=== PATIENT | female | born 1970 | race Caucasian/White ===

== ENCOUNTER → 2017-09-23 13:48 | Outpatient (CLI) | payer BC, SELFPAY | PROVIDERS: Family Provider Family Medicine; PCP Family Medicine; Visit Provider Obstetrics & Gynecology | DX: Z87.898 Personal history of other specified conditions (principal) | CPT/HCPCS: 76642; 77062; 77066; G0279 ==

== ENCOUNTER → 2017-09-26 15:40 | Outpatient (CLI) | payer BC, SELFPAY ==
--- NOTE | 2017-09-26 | LYMN_PTH ---
PATIENT: GARCIA JOLLEY LOC: [facility] U#:[id number] AGE/SX: 54/F ROOM: RE09/26/[address]: Dr. Andres Perla III, MD : 1970 BED: DIS: SPEC #: [id number] RECD: 09/26/17 08:07 STATUS: MICK REQ #: [id number] LONNIE: 09/26/17 00:[address]: Benton Perla DEPT: SURGICAL PATHOLOGY RECD BY: Anshu Perez ENTERED: 09/29/17 08:26 SP TYPE: LYMPH NODE OTHR DR: Dr. Thad Whalen MD Tissues: Axillary lymph node, NOS Procedures: Surgery Specimen Level IV Comments: @ Originally on account #[id number] Req #[id number] HEADER OPERATION: Right breast lymph node biopsy PRE-OP DIAGNOSIS: Lymph node right breast TISSUE SUBMITTED: Right breast lymph node ISCHEMIC TIME: >1 minute FIXATION TIME: 8.5 hours MICROSCOPIC DIAGNOSIS Right breast lymph node, core biopsy: Lymph node tissue, polytypic in nature, favor benign with reactive changes. Negative for metastatic carcinoma.. GUMARO:matt 09/30/17 COMMENT Immunohistochemistry ([id number]) supports the above diagnosis. MICROSCOPIC DESCRIPTION Slides are reviewed. GROSS DESCRIPTION Received in fixative is one container labeled with the patient's name and designated right breast biopsy. The specimen consists of multiple elongated fragments of blanco-yellow fibroadipose tissue that in aggregate measure 1 x 0.2 x 0.1 cm. The entire specimen is submitted in one cassette. / GUMARO:matt 09/29/17 TC:5 CPT: 64849
--- NOTE | 2017-09-26 | IMM_PTH ---
PATIENT: GARCIA JOLLEY LOC: [facility] U#:[id number] AGE/SX: 54/F ROOM: RE09/26/[address]: Dr. Andres Perla III, MD : 1970 BED: DIS: SPEC #: [id number] RECD: 09/30/17 13:05 STATUS: MICK RELalo #: [id number] LONNIE: 09/26/17 00:[address]: Benton Perla DEPT: IMMUNOHISTOCHEMISTRY RECD BY: Claudia Lui ENTERED: 09/30/17 13:07 SP TYPE: IMMUNO OTHR DR: MD Dr. Thad Navarrete III, MD Tissues: Axillary lymph node, NOS Procedures: BCL-2 (add) CD20 (add) CD45 (add) CD5 (add) CD79A (add) CK8 (add) Pankeratin (add) CD3 (initial) PHYSICIAN & INSTITUTION [place] [id number] SPECIMEN INFORMATION: Tissue Source: Right breast lymph node Clinical Info: Right breast lymph node Specimen Number: [id number] CPT code: 91680, 14864 x7 METHODOLOGY: Deparaffinized sections of prefer/formalin-fixed tissue or PAP/DQ stained slides are incubated with monoclonal/polyclonal antibodies/oligonucleotide probes. Localization is made via biotin free immunoperoxidase method. Appropriate controls are performed and reacted as expected. Results on target cell population are indicated in the following table: RESULTS: ANTIBODY / CLONE RESULT CD3 (PS1) positive CD5 (SP10) positive CD20 (L26) positive CD79a (11E3) positive CD45 (RP2/18) positive CK8 ([id number]) negative AE1-3 (AE1/AE3/PCK26) negative BCL-2 (bcl-2/100/D5) negative in germinal center These tests were developed and their performance characteristics determined by [facility]. They may not have been cleared or approved by the U.S. Food and Drug Administration. The FDA has determined that such clearance or approval is not necessary. INTERPRETATION: Right breast lymph node, biopsy: Lymph node tissue, polytypic in nature, favor benign, with reactive changes. Negative for metastatic carcinoma. SJ:matt 10/01/17
== END ==
PROVIDERS: Family Provider Family Medicine; PCP Family Medicine; Visit Provider Family Medicine
DX: N64.59 Other signs and symptoms in breast (principal)
CPT/HCPCS: 88305; 88341; 88342

== ENCOUNTER → 2017-12-29 09:38 | Outpatient (CLI) | payer BC, SELFPAY ==
[2017-12-29 12:44] LABS: Absolute Lymphocyte Count 2.31 X10^3/ul (0.83-4.51); Absolute Neutrophil Count 5.9 X10^3/uL (2.0-7.7); Basophil# 0.03 X10^3/uL; Basophil% 0.3 % (0-1); Eosinophil# 0.17 X10^3/uL; Eosinophils% 1.9 % (0-5); Hematocrit 41.5 % (37-47); Hemoglobin 13.4 g/dl (12.0-15.0); Lymphocyte # 2.31 X10^3/ul (4.0); Lymphocyte % 25.7 % (19-41); Mean Corp Hgb Conc 32.3 g/gl (32-36); Mean Corpuscular Hgb 27.6 pg (27.0-32.0); Mean Corpuscular Volume 85.4 fL (81-99); Monocyte# 0.51 X10^3/uL; Monocyte% 5.7 % (0-10); Neutrophil # 5.93 X10^3/uL (2.7-7.7); Neutrophil % 65.8 % (47-70); Platelet Count 230 K/mm3 (150-450); RBC Distribution Width CV 14.9 % (11.6-14.6); RBC Distribution Width SD 46.2 fl (35.1-43.9); Red Blood Count 4.86 M/mm3 (4.2-5.4)
[2017-12-29 12:56] LABS: POSITIVE COUNT NO; POSITIVE DIFFERENTIAL NO; POSITIVE MORPHOLOGY NO
[2017-12-29 13:07] LABS: ALB/GLOB Ratio 0.9 RATIO (0.9-2.4); AST(SGOT) 10 U/L (15-37); Alanine Aminotransfer ALT/SGPT 20 U/L (13-56); Albumin, Serum 3.3 g/dL (3.2-5.0); Alkaline Phosphatase 82 U/L (45-117); Anion Gap 9 (5-15); BUN 13 mg/dL (7-18); BUN/Creat Ratio 27.1 RATIO (10-20); Calcium,Total 8.6 mg/dL (8.5-10.1); Chloride 106 mmol/L (98-107); Creatinine, Serum 0.48 mg/dL (0.55-1.02); EST Glomerular Filtration Rate 148 mL/min (>60); Est Glom Filt Rate - Afr Amer 179 mL/min (>60); Globulin 3.5 g/dL (2.2-4.2); Glucose 113 mg/dL (74-106); Magnesium 1.9 mg/dL (1.6-2.6); Potassium 4.1 mmol/L (3.5-5.1); Protein, Total 6.8 g/dL (6.4-8.2); Sodium Level 139 mmol/L (136-145)
== END ==
PROVIDERS: Family Provider Family Medicine; PCP Family Medicine; Visit Provider Family Medicine
DX: R06.09 Other forms of dyspnea (principal)
CPT/HCPCS: 36415; 80053; 83735; 85025

== ENCOUNTER → 2018-01-13 06:54 | Outpatient (CLI) | payer BC, SELFPAY ==
[2018-01-08 11:31] VITALS: BMI 62.9
--- NOTE | 2018-01-13 07:01 | ECHOCS_ITS ---
Reason For Study: PEÑA Procedure This was a 2D Doppler, Color Flow transthoracic echocardiogram. The study was technically difficult. Contrast injection was performed. Exam performed in department. Left Ventricle Normal LV size. Left ventricular systolic function is normal. The estimated ejection fraction is 65 %. No evidence for diastolic dysfunction. No regional wall motion abnormalities noted. Right Ventricle Normal RV size. Normal systolic function. Atria The left atrium is mildly enlarged. Normal right atrium. No doppler evidence for ASD. Mitral Valve There is mild mitral annular calcification. Normal mitral valve. Mild (1+) mitral valve insufficiency. Tricuspid Valve Normal tricuspid valve. Mild tricuspid valve insufficiency. Right ventricular systolic pressure estimated to be 26 mmHg. Aortic Valve The aortic valve is not well visualized. Pulmonic Valve The pulmonic valve is not well visualized. Great Vessels The aortic root is not well visualized. Pericardium/Pleural No pericardial effusion. Medication Diluted definity 4ml given slow IV push to enhance endocardial definition. MMode/2D Measurements & Calculations LVIDd: 4.8 cm IVSd: 1.0 cm LAV(MOD-bp): 73.5 ml LVIDs: 3.1 cm LVPWd: 0.97 cm RVDd: 3.8 cm FS: 35.1 % LAV(MOD-bp) Indexed: 29.1 ml/m2 LAV(MOD-sp2): 71.5 ml LAV(MOD-sp4): 70.5 ml EDV(MOD-sp4): 136.7 ml EDV(MOD-sp2): 154.6 ml SV(MOD-sp4): 83.6 ml ESV(MOD-sp4): 53.0 ml EF(MOD-sp2): 68.8 % EF(MOD-sp4): 61.2 % SV(MOD-sp2): 106.3 ml LA dimension(2D): 3.9 cm LA A4 area: 23.9 cm2 RA A4 area: 17.5 cm2 Time Measurements MV dec time: 0.20 sec Doppler Measurements & Calculations MV E max michael: 104.5 cm/sec Lat Peak E' Michael: 10.5 cm/sec Med Peak E' Michael: 7.9 cm/sec MV A max michael: 85.9 cm/sec E/E' lat: 10.0 E/E' med: 13.3 MV E/A: 1.2 Ao V2 max: 170.9 cm/sec LV V1 max: 154.7 cm/sec TR max michael: 239.9 cm/sec Ao max P.7 mmHg LV V1 max P.6 mmHg TR max P.3 mmHg Interpretation Summary The study was technically difficult. Contrast injection was performed. Left ventricular systolic function is normal. The estimated ejection fraction is 65 %. The left atrium is mildly enlarged. There is mild mitral annular calcification. Mild (1+) mitral valve insufficiency. Mild tricuspid valve insufficiency. Right ventricular systolic pressure estimated to be 26 mmHg. No evidence for diastolic dysfunction. Ordering Physician: Thad Whalen Referring Physician: Thad Whalen Performed By: Lou Gtz, RDANDERSON, RVT
== END ==
PROVIDERS: Family Provider Family Medicine; PCP Family Medicine; Referring Provider Family Medicine; Visit Provider Family Medicine
DX: R06.09 Other forms of dyspnea (principal)
CPT/HCPCS: 78452; 93017; 93306; A9500; Q9957; A4216; C8929

== ENCOUNTER → 2018-01-13 06:57 | Outpatient (REF) | payer BC, SELFPAY ==
[2018-01-08 11:31] VITALS: BMI 62.9
--- NOTE | 2018-01-13 14:38 | STRESSREP ---
Stress Test Report Date: 01/13/2018 Procedure: Exercise tolerance test/imaging study Indications: Shortness of breath/dyspnea on exertion Consent: Per the patient Procedure: The patient exercised on a Robin protocol for 5 minutes and 45 seconds completing Stage I and 2 minutes and 45 seconds of Stage II achieving a peak heart rate of 160 bpm (91 % predicted maximal heart rate) with a peak blood pressure 150/80 mmHg and a peak MET capacity of 7 METs. The baseline ECG demonstrated normal sinus rhythm. The peak exercise ECG demonstrated no obvious ECG changes. There was a rare PVC during exercise. The functional capacity was considered average. There was no complaint of chest discomfort during exercise or recovery. The examination was discontinued secondary to dyspnea. Impression: 1. Technically adequate (percent predicted maximal heart rate greater than 85%) exercise tolerance test 2. Peak exercise ECG no obvious ECG changes 3. Was a rare PVC during exercise 4. Nuclear images pending Myocardial perfusion imaging study: Technique: The patient was injected with 14.9 mCi of technetium 99m Cardiolite and subsequently rest SPECT Cardiolite nuclear imaging was obtained in the horizontal long, vertical long, and short axis views. The patient exercised on a Robin protocol for 5 minutes and 45 seconds completing Stage I and 2 minutes and 45 seconds of Stage II achieving a peak heart rate of 160 bpm (91 % predicted maximal heart rate) with a peak blood pressure 150/80 mmHg and a peak MET capacity of 7 METs. The patient was injected with 44.8 mCi of technetium 99m Cardiolite and subsequently stress SPECT Cardiolite nuclear imaging was obtained in the horizontal long, vertical long, and short axis views. A gated Cardiolite study at peak stress was obtained. Interpretation: Rest and stress SPECT Cardiolite nuclear imaging status post realignment, normalization, and attenuation correction, demonstrates extracardiac/gastrointestinal tracer uptake at rest which appears less prominent following stress. At rest there is notation of relative uniform tracer uptake. Status post stress there is notation of diminished tracer uptake in portions of the mid to distal anterior/anterolateral segments. There is diminished end-systolic thickening and brightening in the aforementioned areas. The gated Cardiolite study demonstrates myocardial thickening and inward wall motion. The reported LVEF is 69 %. Impression: 1. Rest and stress SPECT Cardiolite nuclear imaging demonstrate cardio perfusion changes appearing compatible with an area of stress-induced myocardial ischemia in portions of the mid to distal anterior lateral segments. 2. The gated Cardiolite study reports an LVEF of 69 %. This note was generated with [employer] software. It may contain incorrect words, spelling, and punctuation that were not noted in checking the note before signing.
--- NOTE | 2018-01-13 14:44 | STRESSREP_ITS ---
Stress Test Report Date: 01/13/2018 Procedure: Exercise tolerance test/imaging study Indications: Shortness of breath/dyspnea on exertion Consent: Per the patient Procedure: The patient exercised on a Robin protocol for 5 minutes and 45 seconds completing Stage I and 2 minutes and 45 seconds of Stage II achieving a peak heart rate of 160 bpm (91 % predicted maximal heart rate) with a peak blood pressure 150/80 mmHg and a peak MET capacity of 7 METs. The baseline ECG demonstrated normal sinus rhythm. The peak exercise ECG demonstrated no obvious ECG changes. There was a rare PVC during exercise. The functional capacity was considered average. There was no complaint of chest discomfort during exercise or recovery. The examination was discontinued secondary to dyspnea. Impression: 1. Technically adequate (percent predicted maximal heart rate greater than 85%) exercise tolerance test 2. Peak exercise ECG no obvious ECG changes 3. Was a rare PVC during exercise 4. Nuclear images pending Myocardial perfusion imaging study: Technique: The patient was injected with 14.9 mCi of technetium 99m Cardiolite and subsequently rest SPECT Cardiolite nuclear imaging was obtained in the horizontal long, vertical long, and short axis views. The patient exercised on a Robin protocol for 5 minutes and 45 seconds completing Stage I and 2 minutes and 45 seconds of Stage II achieving a peak heart rate of 160 bpm (91 % predicted maximal heart rate) with a peak blood pressure 150/80 mmHg and a peak MET capacity of 7 METs. The patient was injected with 44.8 mCi of technetium 99m Cardiolite and subsequently stress SPECT Cardiolite nuclear imaging was obtained in the horizontal long, vertical long, and short axis views. A gated Cardiolite study at peak stress was obtained. Interpretation: Rest and stress SPECT Cardiolite nuclear imaging status post realignment, normalization, and attenuation correction, demonstrates extracardiac/gas trointestinal tracer uptake at rest which appears less prominent following stress. At rest there is notation of relative uniform tracer uptake. Status post stress there is notation of diminished tracer uptake in portions of the mid to distal anterior/anterolateral segments. There is diminished end-systolic thickening and brightening in the aforementioned areas. The gated Cardiolite study demonstrates myocardial thickening and inward wall motion. The reported LVEF is 69 %. Impression: 1. Rest and stress SPECT Cardiolite nuclear imaging demonstrate cardio perfusion changes appearing compatible with an area of stress-induced myocardial ischemia in portions of the mid to distal anterior lateral segments. 2. The gated Cardiolite study reports an LVEF of 69 %. This note was generated with [employer] software. It may contain incorrect words, spelling, and punctuation that were not noted in checking the note before signing.
== END ==
LOC: CVS 06:57
PROVIDERS: Family Provider Family Medicine; PCP Family Medicine; Referring Provider Internal Medicine Cardiovascular Disease; Visit Provider Internal Medicine Cardiovascular Disease
DX: R00.2 Palpitations (principal)
CPT/HCPCS: 93270

== ENCOUNTER 2019-01-02 10:00 | Emergency (ER) | payer BC, SELFPAY ==
[2018-03-20 10:13] VITALS: BMI 63.8
[2019-01-02 10:01] VITALS: BP 154/65; PULSE 77; RESP 16; TEMP 36.4; O2SAT 98; BMI 61.7
[2019-01-02] MEDS: Ondansetron 4 MG/2 ML Vial IV (10:52)
[2019-01-02] MEDS: LORazepam 2 MG/ML Syringe 1 MG IV (10:52)
[2019-01-02 11:27] LABS: Carboxyhemoglobin Frac (CO) 2.1 % (0.0-1.5)
[2019-01-02 11:53] VITALS: PULSE 83; RESP 14; O2SAT 95
--- NOTE | 2019-01-02 11:54 | ED.RN ---
ATTEMPTED TO AMBULATE PT TO EVALUATE VERTIGO SYMPTOMS. PT INITIALLY REFUSED, STATING I JUST WANT TO SLEEP'. AFTER ENCOURAGEMENT, PT GOT OUT OF BED, STATED EVERYTHING WAS STILL SPINNING. AWARE.
--- NOTE | 2019-01-02 12:02 | CT_ITS ---
STUDY: CT BRAIN WITHOUT CONTRAST REASON FOR EXAM: Female, 48 years old. Dizziness RADIATION DOSAGE (If Supplied By Facility): CTDIvol = ( 44.99 ) mGy, DLP = ( 829.85 ) mGycm TECHNIQUE: Transaxial CT imaging of the brain was performed without administration of intravenous contrast material. Individualized dose optimization techniques were used for this CT. COMPARISON: No relevant priors. FINDINGS: Normal soft tissue structures. Normal calvarium. Normal size ventricles and extra-axial spaces for the patient's age. Normal white matter tracts of the cerebral hemispheres. Normal basal ganglia and thalami. Normal brainstem. Normal cerebellum. There is no intracranial hemorrhage. There are no findings of an acute ischemic infarction. Normal visualized paranasal sinuses. CT/Brain/Head without Contrast IMPRESSION: No acute intracranial hemorrhage or mass effect. Electronically Signed: Yoseph Haley MD (Brooks) at 12:29 EST , Service support ,
[2019-01-02] MEDS: Meclizine HCl 25 MG Tablet PO (12:27)
[2019-01-02 12:29] LABS: Absolute Lymphocyte Count 3.55 X10^3/uL (0.83-4.51); Absolute Neutrophil Count 10.7 X10^3/uL (2.0-7.7); Basophil% 0.6 % (0-1); Eosinophil# 0.34 X10^3/uL; Eosinophils% 2.2 % (0-5); Hematocrit 43.2 % (37-47); Hemoglobin 13.8 g/dL (12.0-15.0); Lymphocyte # 3.55 X10^3/ul (4.0); Lymphocyte % 22.8 % (19-41); Mean Corp Hgb Conc 31.9 g/dL (32-36); Mean Corpuscular Hgb 27.5 pg (27.0-32.0); Mean Corpuscular Volume 86.1 fL (81-99); Mean Platelet Vol. 11.9 fl (6.2-12.0); Monocyte# 0.76 X10^3/uL; Monocyte% 4.9 % (0-10); NRBC Flagged by Analyzer 0 % (0-5); Neutrophil # 10.68 X10^3/uL (2.7-7.7); Neutrophil % 68.4 % (47-70); Platelet Count 273 K/mm3 (150-450); RBC Distribution Width CV 13.7 % (11.6-14.6); RBC Distribution Width SD 43.3 fl (35.1-43.9); Red Blood Count 5.02 M/mm3 (4.2-5.4); White Blood Count 15.6 K/mm3 (4.4-11.0)
[2019-01-02 12:59] LABS: Internal QC Validated? YES +Cl - CLEAR BKGD; Pregnancy, Serum, hCG Quali. NEGATIVE Negative
[2019-01-02 13:05] LABS: Anion Gap 10 (5-15); BUN 14 mg/dL (7-18); BUN/Creat Ratio 21.2 RATIO (10-20); Calcium,Total 8.7 mg/dL (8.5-10.1); Chloride 106 mmol/L (98-107); Creatinine, Serum 0.66 mg/dL (0.55-1.02); EST Glomerular Filtration Rate 102 mL/min (>60); Est Glom Filt Rate - Afr Amer 123 mL/min (>60); Estimated Creatinine Clearance 90.99 ml/min; Glucose 179 mg/dL (74-106); Potassium 3.6 mmol/L (3.5-5.1); Sodium Level 140 mmol/L (136-145)
--- NOTE | 2019-01-02 13:40 | ED.VISSUMM ---
- ER Visit Summary Date of Service: 01/02/19 Chief Complaint: Dizziness History of Present Illness: The patient is a 48 F dizziness that started suddenly at wake up this morning. She feels like the room is spinning. Associated with nausea and she is unsteady when she tries to walk. No other neurologic symptoms. No head ache. No recent infection or illness or fever. No trauma. No history of blood thinner use. Denies any new hearing changes. Physical Examination: Afebrile and vital signs are unremarkable. Patient appears uncomfortable. She has horizontal nystagmus with fast saccades to the left. Otherwise HEENT exam is unremarkable. Neurologic exam is otherwise unremarkable. Skin appears normal. Bilateral TMs show some scarring but otherwise are unremarkable. Test Results: See below Emergency Department Course and Treatment: Patient initially presents with what seems like peripheral vertigo. She was treated with Ativan and Zofran. Her nausea improved, but she had continued dizziness and was unable to ambulate. I thought she may need inpatient care. Her vertigo was still fairly severe. I added on testing. Her white count was 15.6. She said this was elevated in the past. It was 13.7. I do not believe she has an infectious process based on her history or exam. I have no other explanation for this. Otherwise her labs were all fairly unremarkable. She said that she was concerned she may have been exposed to carbon monoxide, and this was 2.1, which is normal. CT of her brain was unremarkable. Patient was treated with meclizine as well while awaiting results. On further reevaluation, we reviewed her labs including the leukocytosis. No further testing is indicated. The patient seems to be much improved. He would like to try outpatient therapy. Will prescribe meclizine. She was advised to follow-up with ENT. If she has new or worsening issues, she should return right away. Treatment Plan: As above Disposition: Discharge Impression: 1. Vertigo This note was generated with [employer] dictation software. It may contain incorrect words, spelling, and punctuation that were not noted in review of the chart prior to signing ED Disposition - Plan for ED Patient: Referrals: Thad Whalen MD [Primary Care Provider] -
--- NOTE | 2019-01-02 13:43 | ED.DEP ---
ED Disposition - Plan for ED Patient: Instructions: VERTIGO, Unspecified Prescriptions: Meclizine HCl [Antivert] 25 mg PO TID PRN PRN #30 tab PRN Reason: Vertigo Prescription Printed Referrals: Jamar Dumont MD [STAFF PHYSICIAN] -
[2019-01-02 14:05] VITALS: PULSE 79; RESP 16; O2SAT 98
--- NOTE | 2019-01-02 14:09 | ED.RN ---
ABLE TO REACH [employer]GAL [employer] AFTER SEVERAL ATTEMPTS. PERMISSION GIVEN TO TREAT, UPDATED ON PT'S HEALTH HISTORY.
== END 2019-01-02 14:09 | disposition home or self-care (01) ==
LOC: ED 10:35
PROVIDERS: Emergency Provider Emergency Medicine; Family Provider Family Medicine; PCP Family Medicine
DX: R42 Dizziness and giddiness (principal); I10 Essential (primary) hypertension
CPT/HCPCS: 70450; 80048; 82375; 84703; 85025; 96374; 96375; 99283; A4216; J2405

== ENCOUNTER → 2019-10-27 15:49 | Outpatient (CLI) | payer BC, SELFPAY ==
[2019-10-27 09:02] VITALS: BMI 66.3
[2019-11-02 10:28] LABS: HPV APTIMA, High Risk Negative (Negative)
== END ==
PROVIDERS: PCP Family Medicine; Visit Provider Obstetrics & Gynecology
DX: Z12.4 Encounter for screening for malignant neoplasm of cervix (principal)
CPT/HCPCS: 87624; 88175; G0145

== ENCOUNTER → 2019-12-01 09:19 | Outpatient (CLI) | payer BC, SELFPAY ==
[2019-10-27 09:02] VITALS: BMI 66.3
[2019-12-01 10:34] LABS: Vitamin D,25 Hydroxy 14.1 ng/mL
[2019-12-01 10:39] LABS: Anion Gap 6 (5-15); BUN 10 mg/dL (7-18); BUN/Creat Ratio 16.3 RATIO (10-20); Calcium,Total 8.9 mg/dL (8.5-10.1); Chloride 103 mmol/L (98-107); Cholesterol 197 mg/dL (200); Creatinine, Serum 0.61 mg/dL (0.55-1.02); EST Glomerular Filtration Rate 110 mL/min (>60); Est Glom Filt Rate - Afr Amer 134 mL/min (>60); Glucose 160 mg/dL (74-106); High Density Lipoprotein 49 mg/dL; Potassium 3.9 mmol/L (3.5-5.1); Sodium Level 135 mmol/L (136-145); Thyroid Stim Hormone (TSH) 2.25 uIU/mL (0.358-3.74); Triglycerides 225 mg/dL; Very Low Density Lipoprotein 45 mg/dL (5-40)
== END ==
PROVIDERS: PCP Family Medicine; Referring Provider Family Medicine; Visit Provider Family Medicine
DX: Z00.00 Encounter for general adult medical examination without abnormal findings (principal)
CPT/HCPCS: 36415; 80048; 80061; 82306; 84443

== ENCOUNTER → 2020-03-08 08:46 | Outpatient (CLI) | payer BC, SELFPAY ==
[2019-10-27 09:02] VITALS: BMI 66.3
[2020-03-08 10:28] LABS: Anion Gap 8 (5-15); BUN 13 mg/dL (7-18); BUN/Creat Ratio 20.7 RATIO (10-20); Chloride 105 mmol/L (98-107); Cholesterol 196 mg/dL (200); Creatinine, Serum 0.63 mg/dL (0.55-1.02); EST Glomerular Filtration Rate 107 mL/min (>60); Est Glom Filt Rate - Afr Amer 129 mL/min (>60); Glucose 146 mg/dL (74-106); High Density Lipoprotein 45 mg/dL; Potassium 3.8 mmol/L (3.5-5.1); Sodium Level 137 mmol/L (136-145); Triglycerides 188 mg/dL; Very Low Density Lipoprotein 38 mg/dL (5-40)
[2020-03-08 11:01] LABS: Vitamin D,25 Hydroxy 31.1 ng/mL
== END ==
PROVIDERS: PCP Family Medicine; Referring Provider Family Medicine; Visit Provider Family Medicine
DX: E55.9 Vitamin D deficiency, unspecified (principal); E11.9 Type 2 diabetes mellitus without complications
CPT/HCPCS: 36415; 80048; 80061; 82306

== ENCOUNTER 2020-03-10 10:45 | Outpatient (RCR) | payer BC, SELFPAY ==
[2019-10-27 09:02] VITALS: BMI 66.3
== END 2020-03-10 23:59 ==
LOC: IMMUN 10:45
PROVIDERS: PCP Family Medicine; Visit Provider Family Medicine
DX: Z23 Encounter for immunization (principal)
CPT/HCPCS: 0011A; 0012A; 91301

== ENCOUNTER 2021-04-11 09:28 | Outpatient (CLI) | payer BC, SELFPAY ==
[2021-04-11 11:06] LABS: Anion Gap 7 (5-15); BUN 11 mg/dL (7-18); BUN/Creat Ratio 19.9 RATIO (10-20); Calcium,Total 8.7 mg/dL (8.5-10.1); Chloride 104 mmol/L (98-107); Cholesterol 205 mg/dL (200); Creatinine, Serum 0.55 mg/dL (0.55-1.02); EST Glomerular Filtration Rate 124 mL/min (>60); Est Glom Filt Rate - Afr Amer 150 mL/min (>60); Glucose 135 mg/dL (74-106); High Density Lipoprotein 46 mg/dL; Potassium 4.3 mmol/L (3.5-5.1); Sodium Level 137 mmol/L (136-145); Triglycerides 242 mg/dL; Very Low Density Lipoprotein 48 mg/dL (5-40)
== END 2021-04-11 23:59 | disposition home or self-care (01) ==
LOC: MFPLAB 09:29
PROVIDERS: PCP Family Medicine; Referring Provider Family Medicine; Visit Provider Family Medicine
DX: E11.9 Type 2 diabetes mellitus without complications (principal)
CPT/HCPCS: 36415; 80048; 80061

== ENCOUNTER → 2021-11-07 | Outpatient (CLI) | payer BC, SELFPAY ==
[2021-11-07 10:24] LABS: Anion Gap 9 (5-15); BUN 13 mg/dL (7-18); BUN/Creat Ratio 19.2 RATIO (10-20); Chloride 103 mmol/L (98-107); Cholesterol 146 mg/dL (200); Creatinine, Serum 0.68 mg/dL (0.55-1.02); EST Glomerular Filtration Rate 98 mL/min (>60); Est Glom Filt Rate - Afr Amer 118 mL/min (>60); Glucose 149 mg/dL (74-106); High Density Lipoprotein 46 mg/dL; Potassium 4.2 mmol/L (3.5-5.1); Sodium Level 137 mmol/L (136-145); Triglycerides 247 mg/dL; Very Low Density Lipoprotein 49 mg/dL (5-40)
== END | disposition home or self-care (01) ==
LOC: MFPLAB 08:57
PROVIDERS: PCP Family Medicine; Referring Provider Family Medicine; Visit Provider Family Medicine
DX: E11.9 Type 2 diabetes mellitus without complications (principal)
CPT/HCPCS: 36415; 80048; 80061

== ENCOUNTER → 2022-05-20 | Outpatient (CLI) | payer BC, SELFPAY ==
[2022-05-20 10:08] LABS: Anion Gap 3 (5-15); BUN 11 mg/dL (7-18); BUN/Creat Ratio 18.2 RATIO (10-20); Chloride 102 mmol/L (98-107); Cholesterol 138 mg/dL (200); Creatinine, Serum 0.61 mg/dL (0.55-1.02); EST Glomerular Filtration Rate 111 mL/min (>60); Est Glom Filt Rate - Afr Amer 134 mL/min (>60); Glucose 163 mg/dL (74-106); High Density Lipoprotein 47 mg/dL; Sodium Level 133 mmol/L (136-145); Triglycerides 171 mg/dL; Very Low Density Lipoprotein 34 mg/dL (5-40)
== END | disposition home or self-care (01) ==
PROVIDERS: PCP Family Medicine; Visit Provider Family Medicine
DX: E11.9 Type 2 diabetes mellitus without complications (principal)
CPT/HCPCS: 36415; 80048; 80061

== ENCOUNTER 2022-07-24 08:30 | Day surgery (SDC) | payer BC, SELFPAY ==
[2022-07-24] MEDS: Lactated Ringers 1,000 ML 15 ML IV (08:45)
[2022-07-24 09:01] VITALS: BP 140/81; PULSE 89; RESP 20; TEMP 36.7; O2SAT 96; BMI 59.8
--- NOTE | 2022-07-24 09:17 | H&P.OPEN ---
HPI - General General Date of Admission: 07/24/22 HPI Narrative GARCIA JOLLEY, is a 52 F who presents for screening colonoscopy. Patient never had previous colonoscopy. Patient denies any family history of colon cancer. Patient denies any chronic abdominal pain/nausea/vomiting/reflux. Patient's bowel movements daily has occasional blood due to hemorrhoids. Patient states she has had a camera take a look at this area that she knows she has hemorrhoids. [facility] Medical History (Updated 07/22/22 @ 14:01 by Yamel Li) Abnormal stress test Benign essential hypertension BiPAP (biphasic positive airway pressure) dependence Cardiology follow-up encounter Climacteric Dietary restriction Dysmetabolic syndrome X High cholesterol History of echocardiogram History of edema History of stress test Hypertension Leg cramps Non-smoker Palpitations Sleep apnea SOB (shortness of breath) on exertion Type 2 diabetes mellitus without complications Wears glasses Home Medications biotin 10 mg tablet 10 mg PO DAILY 04/05/19 [History Last Taken Unknown] multivitamin 1 tab PO DAILY 04/05/19 [History Last Taken Unknown] naproxen 500 mg tablet 500 mg PO BID PRN pain 10 days #30 tabs 10/27/19 [Rx Last Taken Unknown] metformin 1,000 mg tablet 750 mg PO QHS 08/07/21 [History Last Taken Unknown] dulaglutide 0.75 mg/0.5 mL subcutaneous pen injector (Trulicity) 3.75 mg subcut WE 06/14/22 [History Last Taken Unknown] rosuvastatin 10 mg tablet 10 mg PO DAILY 06/14/22 [History Last Taken Unknown] lisinopril 20 mg-hydrochlorothiazide 25 mg tablet 1 tab PO DAILY 07/22/22 [History Last Taken Unknown] metoprolol tartrate 25 mg tablet 12.5 mg PO BID 07/22/22 [History Last Taken Unknown] Allergy/AdvReac Type Severity Reaction Status Date / Time clindamycin [From Cleocin] Allergy Unknown Unknown Verified 07/24/22 09:00 Family History Mother Diabetes DCIS (ductal carcinoma in situ) Hypertension Father Diabetes Heart disease Hypertension Hypercholesterolemia Colon polyps Surgical History (Updated 07/22/22 @ 14:01 by Yamel Li) History of adenoidectomy History of left heart catheterization (LHC) (~01/23/18) S/P Social History Smoking Status: Never smoker alcohol intake: current alcohol intake frequency: holidays/special occasions only substance use type: does not use caffeine: Yes what type of physical activity do you participate in: walking frequency: 1-2 times per week seatbelt use: always do you feel safe at home: Yes additional social history: - Chin- Plans strategies for hospital Patient is professor at the [employer] Past Medical/Surgical History Planned Operation Planned Operative Procedure/s: OA-CSCOPE Previous Hospitalizations/Surgeries HX Hospitalizations: No Any Problems With Anesthesia: No You/Your Family Experience Fever (Hyperthermia) With Anes: No Cholinesterase deficiency: No Cardiovascular Hx of Irregular Heartbeat and/or Afib: No Hx Heart Attack: No Hx Congestive Heart Failure: No Hx Rheumatic Fever: No Hx Hypertension: Yes (CONTROLLED WITH MEDS) Hx Internal Defibrillator: No Hx Pacemaker: No Hx Pain in Legs when Walking/Leg Cramps: No Respiratory HX of Shortness of Breath: No Hx Chronic Obstructive Pulmonary Disease (COPD): No Hx Asthma: No Hx Emphysema: No Hx Sleep Apnea: Yes CPAP: No BIPAP: Yes Hx Respiratory Tract Infection/Cold (presently): No Result (for STOP score): Positive Hx Smoking: No Smoking Status: Never smoker Gastrointestinal Hx Gastroesophageal Reflux: No Hx Gastrointestinal Bleed: No Hx Ulcer: No Neurological Hx Seizures: No Hx Multiple Sclerosis: No Hx Parkinson's Disease: No Hx Head/Neck Injury: No Hx Headaches: No Hx Back Injury/Pain: No Does patient have nerve stimulator: No Blood Disorder Hx Hepatitis: No Hx Anemia: No Reproduction : No Is Patient Lactating: No Genitourinary Hx Renal Disease: No Musculoskeletal Hx Arthritis: No Hx Gout: No Endocrine Hx Diabetes: No Thyroid Disease: No Psycho/Social Hx Anxiety: No Hx Depression: No Hx Dementia: No Miscellaneous Hx Cancer: No Recent Exposure to Contagious Disease: No Allergies clindamycin [From Cleocin] Allergy (Unknown, Verified 07/24/22 09:00) Unknown Discharge Is Pt Admitted From a Snf, or a Half-Way: No After D/C, Where Do you Plan to Go: Return Home Vital Signs Vital Signs Vital Signs: 07/24/22 09:01 07/24/22 09:01 Temperature 98.1 F Temperature Source Temporal Pulse Rate 89 Respiratory Rate 20 H Respiratory Pattern Normal Blood Pressure 140/81 H Blood Pressure Mean 100 Blood Pressure Source Monitor Blood Pressure Position Semi-Fowlers Blood Pressure Location Left Arm Pulse Ox 96 Oxygen Delivery Method Room Air Weight Weight: 348 lb 5.286 oz Body Mass Index (BMI) 59.8 Physical Exam Const alert, oriented x3 and no apparent distress Nutritional Appearance: obese HEENT normocephalic and head/scalp atraumatic Resp normal respiratory effort Cardio regular rate GI soft to palpation and non-tender; Negative for non-distended Palpation: Negative for guarding Extremity no clubbing, cyanosis or edema Neuro CN's II-XII intact bilaterally Psych mental status grossly normal Assessment & Plan Assessment/Plan (1) Encounter for screening for malignant neoplasm of colon: Surgery Risks - Colonoscopy I discussed with the patient the risks of the procedure: Yes Risks Include but are not Limited To: Risks include but are not limited to: Bleeding, perforation requiring further surgery, inability to complete colonoscopy requiring barium enema.
--- NOTE | 2022-07-24 09:21 | SUR.PREOP ---
PATIENT UNABLE TO GET URINE FOR URINE . SHE STATES THERE IS NO WAY I'M I TOLD HER THAT WE COULD DRAW BLOOD TO CHECK FOR , OR SHE COULD REFUSE. PATIENT REFUSED.
--- NOTE | 2022-07-24 09:45 | COLBX_PTH ---
PATIENT: GARCIA JOLLEY LOC: EN U#:[id number] AGE/SX: 52/F ROOM: RE07/24/[address]: Dr. Adelaide Kemp MD : 1970 BED: DIS: 07/24/2022 SPEC #: [id number] RECD: 07/24/22 13:34 STATUS: MICK RELalo #: [id number] LONNIE: 07/24/22 09:[address]: Adelaide Kemp DEPT: SURGICAL PATHOLOGY RECD BY: Maritza Perry ENTERED: 07/24/22 13:53 SP TYPE: COLON BX OTHR DR: Dr. Thad Whalen MD Tissues: A - Descending colon B - Descending colon C - Rectum, NOS Procedures: Surgery Specimen Level IV HEADER OPERATION: Colonoscopy, polypectomy and biopsies ? open access (MAC) PRE-OP DIAGNOSIS: Screening TISSUE SUBMITTED: A ? Descending colon polyp biopsy, B - Descending colon polyp 0.8 cm, C ? Rectum polyp biopsy x4 MICROSCOPIC DIAGNOSIS A. Descending colon polyp, biopsy: Tubular adenoma. B. Descending colon polyp, biopsy: Tubulovillous adenoma. C. Rectum polyp, biopsy: Fragments of hyperplastic polyp. GUMARO:matt 07/25/2022 MICROSCOPIC DESCRIPTION Slides are reviewed. GROSS DESCRIPTION A - Received in fixative is one container labeled with the patient's name and designated descending colon polyp biopsy. The specimen consists of two irregular fragments of light blanco soft tissue that in aggregate measure 0.5 x 0.2 x 0.1 cm. The specimen is totally submitted in one cassette. B - Received in fixative is one container labeled with the patient's name and designated descending colon polyp 0.8 cm. The specimen consists of a blanco-pink polyp measuring 0.9 x 0.7 x 0.5 cm. The presumed base is inked. The polyp is bisected and submitted entirely in one cassette. C - Received in fixative is one container labeled with the patient's name and designated rectum polyp biopsy x4. The specimen consists of multiple irregular fragments of light blanco soft tissue that in aggregate measure 1.5 x 0.5 x 0.3 cm. The specimen is totally submitted in one cassette. / GUMARO:matt 07/24/2022 TC:1 CPT: 00815 x3
[2022-07-24 09:52] LABS: Bedside Glucose 158 mg/dL (74-106)
[2022-07-24 10:51] VITALS: BP 101/61; BP 140/81; PULSE 97; RESP 18; TEMP 36.9; O2SAT 95
--- NOTE | 2022-07-24 10:54 | OP.COLON_ITS ---
Patient Name: Lyn Bowden Procedure Date: 07/24/2022 10:07 AM Date of : 1970 Age: 52 Procedure: Colonoscopy Indications: Screening for colorectal malignant neoplasm Providers: Adelaide Kemp MD Referring MD: Adelaide Kemp MD Medicines: Monitored Anesthesia Care Patient Profile: This is a 52 year old female. Last Colonoscopy: none. The patient's first colonoscopy is today. Complications: No immediate complications. Procedure: Pre-Anesthesia Assessment: - Prior to the procedure, a History and Physical was performed, and patient medications and allergies were reviewed. The patient's tolerance of previous anesthesia was also reviewed. The risks and benefits of the procedure and the sedation options and risks were discussed with the patient. All questions were answered, and informed consent was obtained. Prior Anticoagulants: The patient has taken no previous anticoagulant or antiplatelet agents. ASA Grade Assessment: Per anesthesia. After reviewing the risks and benefits, the patient was deemed in satisfactory condition to undergo the procedure. After I obtained informed consent, the scope was passed under direct vision. Throughout the procedure, the patient's blood pressure, pulse, and oxygen saturations were monitored continuously. The was introduced through the anus and advanced to the cecum, identified by the appendiceal orifice, ileocecal valve and palpation. The colonoscopy was performed without difficulty. The patient tolerated the procedure well. The quality of the bowel preparation was good. Scope In: 10:18:44 AM Scope Withdrawal Time 0 hours 16 minutes 30 seconds Scope Out: 10:44:45 AM Total Procedure Duration Time 0 hours 26 minutes 1 second Findings: Hemorrhoids were found on perianal exam. Non-bleeding internal hemorrhoids were found. The hemorrhoids were Grade I (internal hemorrhoids that do not prolapse). Three semi-pedunculated polyps were found in the rectum. The polyps were 2 to 4 mm in size. These polyps were removed with a hot snare. Resection and retrieval were complete. Two sessile polyps were found in the rectum and descending colon. The polyps were less than 5 mm in size. These polyps were removed with a cold biopsy forceps. Resection and retrieval were complete. A 8 mm polyp was found in the descending colon. The polyp was pedunculated. The polyp was removed with a hot snare. Resection and retrieval were complete. The exam was otherwise without abnormality. Impression: - Hemorrhoids found on perianal exam. - Non-bleeding internal hemorrhoids. - Three 2 to 4 mm polyps in the rectum, removed with a hot snare. Resected and retrieved. - Two less than 5 mm polyps in the rectum and in the descending colon, removed with a cold biopsy forceps. Resected and retrieved. - One 8 mm polyp in the descending colon, removed with a hot snare. Resected and retrieved. - The examination was otherwise normal. Recommendation: - Discharge patient to home. - Resume previous diet. - Await pathology results. - Repeat colonoscopy in 3 - 5 years for surveillance based on pathology results. - Continue present medications. Procedure Code(s): --- Professional --- 93678, PT, Colonoscopy, flexible; with removal of tumor(s), polyp(s), or other lesion(s) by snare technique 68842, 59, Colonoscopy, flexible; with biopsy, single or multiple Diagnosis Code(s): --- Professional --- Z12.11, Encounter for screening for malignant neoplasm of colon K64.0, First degree hemorrhoids K62.1, Rectal polyp D12.4, Benign neoplasm of descending colon CPT copyright 2017 [employer]. All rights reserved. The codes documented in this report are preliminary and upon telephone answering service operator review may be revised to meet current compliance requirements. MD Adelaide Jaffe MD 07/24/2022 10:53:50 AM This report has been signed electronically. Number of Addenda: 0 Note Initiated On: 07/24/2022 10:07 AM
[2022-07-24 10:55] VITALS: BP 140/81; BP 96/60; PULSE 97; RESP 16; O2SAT 93
--- NOTE | 2022-07-24 10:55 | OP.CCLET_ITS ---
07/24/2022 Thad Whalen MD [address] [phone] Re : Colonoscopy procedure for Lyn Bowden Dear Dr. Whalen This procedure was performed on Sunday, July 24, 2022. My impressions and recommendations are as follows: Impressions : - Hemorrhoids found on perianal exam. - Non-bleeding internal hemorrhoids. - Three 2 to 4 mm polyps in the rectum, removed with a hot snare. Resected and retrieved. - Two less than 5 mm polyps in the rectum and in the descending colon, removed with a cold biopsy forceps. Resected and retrieved. - One 8 mm polyp in the descending colon, removed with a hot snare. Resected and retrieved. - The examination was otherwise normal. Recommendations : - Discharge patient to home. - Resume previous diet. - Await pathology results. - Repeat colonoscopy in 3 - 5 years for surveillance based on pathology results. - Continue present medications. My findings are described in the full procedure note, which is enclosed. If I can be of further assistance, please feel free to contact me at Doctor phone number(s): , Work: . Sincerely, MD Adelaide Jaffe MD 07/24/2022 10:53:50 AM This report has been signed electronically.
[2022-07-24 11:00] VITALS: BP 113/64; BP 140/81; PULSE 86; RESP 16; O2SAT 97
[2022-07-24 11:05] VITALS: BP 113/59; BP 140/81; PULSE 86; RESP 16; O2SAT 97
[2022-07-24 11:06] VITALS: BP 106/54; BP 140/81; PULSE 90; RESP 16; TEMP 36.6; O2SAT 95
== END 2022-07-24 11:34 | disposition home or self-care (01) ==
LOC: EN 08:36 → AC 08:37
PROVIDERS: PCP Family Medicine; Referring Provider Family Medicine; Visit Provider Surgery
PROC: 0DJD8ZZ Inspection of Lower Intestinal Tract, Via Natural or Artificial Opening Endoscopic (ICD-10-PCS; CPT 45378; principal; 2022-07-24 09:40)
DX: Z12.11 Encounter for screening for malignant neoplasm of colon (principal); E11.9 Type 2 diabetes mellitus without complications; K62.1 Rectal polyp; I10 Essential (primary) hypertension; K64.0 First degree hemorrhoids; Z79.2 Long term (current) use of antibiotics; E78.00 Pure hypercholesterolemia, unspecified; D12.4 Benign neoplasm of descending colon
CPT/HCPCS: 45380; 45385; 82962; 88305; J7120; J2405

== ENCOUNTER → 2023-03-11 | Outpatient (CLI) | payer BC, SELFPAY ==
--- NOTE | 2023-03-11 16:33 | RAD_ITS ---
STUDY: X-RAY - LEFT FOOT CLINICAL: Female, 52 years old. pain TECHNIQUE: 3 view(s) of the foot. COMPARISON: None. FINDINGS: Moderate plantar spur, otherwise normal talus, calcaneus, and tarsal bones. Normal visualized subtalar, talonavicular, calcaneocuboid, tarsal and tarsometatarsal articulations. Normal metatarsi. Normal metatarsophalangeal joint of the great toe. Normal tibial and fibular sesamoid bones. Normal interphalangeal joint of the great toe. Normal phalanges of the great toe. Normal second through fifth metatarsophalangeal joints. Normal interphalangeal joints and phalanges of the lesser toes. The soft tissue structures are unremarkable. There is no demonstrated fracture. RAD/Foot min 3 Views IMPRESSION: No definite acute or significant abnormality seen. Electronically Signed: Andry Akers MD at 17:27 EST ,
--- OUTSIDE RECORDS SUMMARY | 2023-03-11 17:09 | XMS RPT_ITS | CCD ---
Author Name Unknown Address [address] [place] [address] Organization [facility] Care Team Providers Care Leather Piece Inspector Name Role Phone Thad Vizcarra Primary Care Provider THAD VIZCARRA Primary Care Unavailable ANTWAN MONTOYA Attending Unavailable Medications Current Medications Medication Drug Class(es) Dates Sig (Normalized) Sig (Original) betamethasone 0.5 mg/ml / clotrimazole 10 mg/ml topical cream (1 source) Azole Antifungal, Corticosteroid Start: 01-24-2022 End: 02-23-2022 clotrimazole-beta methasone (LOTRISONE) cream Apply 1 application to affected area twice daily. TO AFFECTED AREA. 45 g 5 01/24/2022 02/23/2022 Active Completed/Discontinued Medications Medication Drug Class(es) Dates Sig (Normalized) Sig (Original) 12 hr buPROPion hydrochloride 90 mg / naltrexone hydrochloride 8 mg extended release oral tablet (2 sources) Opioid Antagonist, Aminoketone naltrexone-bupropio n (CONTRAVE) 8-90 mg TbER Take by mouth twice daily. 0 Active Problems Active Problems Problem Classification Problem Date Documented Da te Episodic/Chronic Diabetes mellitus with complications (1 source) Disorder of nervous system due to type 2 diabetes mellitus; Translations: [Type 2 diabetes mellitus with other diabetic neurological complication] Chronic Essential hypertension (2 sources) Benign essential hypertension; Translations: [Essential (primary) hypertension] Onset: 10-21-2005 09-25-2010 Chronic Mycoses (1 source) Tinea pedis; Translations: [Tinea pedis] Episodic Other ear and sense organ disorders (2 sources) Hearing loss; Translations: [Unspecified hearing loss, unspecified ear] 10-19-2007 Chronic Other nutritional; endocrine; and metabolic disorders (2 sources) Metabolic syndrome X; Translations: [Metabolic syndrome] Onset: 10-21-2005 09-25-2010 Chronic Other nutritional; endocrine; and metabolic disorders (2 sources) Morbid obesity; Translations: [Morbid (severe) obesity due to excess calories] Onset: 10-21-2008 09-25-2010 Chronic Past or Other Problems Problem Classification Problem Date Documented Da te Episodic/Chronic Diabetes mellitus without complication (2 sources) Impaired fasting glycaemia; Translations: [Impaired fasting glucose] Onset: 7 07-08-2006 Episodic Gastrointestinal hemorrhage (2 sources) Lower gastrointestinal hemorrhage; Translations: [Gastrointestinal hemorrhage, unspecified] Onset: 2 04-03-2011 Episodic Results Test Name Value Interpretation Reference Range Facil ity Encounters Encounter Date Encounter Type Care Provider Facility Start: 01-24-2022 End: 01-24-2022 ambulatory THAD VIZCARRA Facility:[facility] Start: 01-24-2022 End: 01-24-2022 Patient encounter procedure Antwan Jan Work Phone: Podiatry Procedures Date Procedure Procedure Detail Performing Clinician Start: 12-23-2019 EXTERNAL IMAGING Travel Guide al Provider Start: 01-09-2016 Mammography External P rovider Plan of Treatment Date Care Activity Detail Author Start: 2021 SHINGRIX VACCINE (1 of 2) SHINGRIX V ACCINE (1 of 2) [facility] Start: 02-10-2021 DEPRESSION ASSESSMENT DEPRESSION ASS ESSMENT [facility] Start: 10-12-2019 Influenza vaccination INFLUENZA (#1) [facility] Start: 01-08-2017 Mammography MAMMOGRAM [facility] Start: 01-07-2017 HPV TESTING HPV TESTING [facility] Start: 01-07-2017 PAP TESTING PAP TESTING [facility] Start: 2016 COLOGUARD (FIT-DNA) COLOGUARD (FIT-D NA) [facility] Start: 2016 Colonoscopy COLONOSCOPY [facility] Start: 2016 COLORECTAL CANCER SCREENING COLORECTAL CANCER SCREENING [facility] Start: [address] COLONOGRAPHY [facility] Start: 2016 DIABETES SCREEN DIABETES SCREEN [facility] Start: 2016 FECAL OCCULT BLOOD FECAL OCCULT BLOO D [facility] Start: 2016 LIPID SCREEN LIPID SCREEN [facility] Start: 2016 SIGMOIDOSCOPY SIGMOIDOSCOPY [facility] Start: 10-22-2005 Urine microalbumin profile DTAP,TDAP ,TD (1 - Tdap) [facility] Start: 1990 Urine microalbumin profile DTAP,TDAP ,TD (1 - Tdap) [facility] Start: 1989 ANNUAL PCP TEAM BILINGUAL SALES REPRESENTATIVE SELIN DISEASE VISIT ANNUAL PCP TEAM CHRONIC DISEASE VISIT [facility] Start: 1989 BP CONTROLLED (<130/80) BP CONTROLLE D (<130/80) [facility] Start: 1989 HEPATITIS C SCREENING HEPATITIS C SC REENING [facility] Start: 1989 HIV SCREENING HIV SCREENING [facility] Start: 1971 HEPATITIS B (1 of 3 - 3-dose series) HEPATITIS B (1 of 3 - 3-dose series) [facility] Immunizations Immunization Date Immunization Notes Care Provider Giulia benson 02-10-2012 influenza virus vaccine, live, attenuated, for intranasal use External Provider [facility] 11-10-2008 influenza virus vaccine, unspecified formulation External Provider [facility] Work Phone: 10-21-2005 tetanus and diphther ia toxoids, adsorbed, preservative free, for adult use (2 Lf of tetanus toxoid and 2 Lf of diphtheria toxoid) External Provider [facility] Payers Date Payer Category Payer Unknown [employer] POS [id number] 2019-Present POS [id number] 2019 Unknown [employer] POS OOS [id number] 2019-Present [phone] [address] [place] [address] POS [id number] 2019 Unknown [id number] Social History Date Type Detail Facility Start: 11-12-2010 End: 01-09-2016 Tobacco smoking status NHIS Never smoker [facility] Work Phone: Start: 11-12-2010 End: 01-09-2016 Tobacco use and exposure Never used [facility] Start: 01-09-2016 End: 01-24-2022 Alcohol intake Current drinker of alcohol (finding) [facility] Start: 1970 Sex Assigned At Not on file [facility] Progress note 01-24-2022 Note Date & Type Note Facility 01-24-2022 Note HNO ID: [id number] Author: Antwan Montoya Service: ? Author Type: Physician Type: Progress Notes Filed: 01/26/2022 10:37 PM Note Text: Initial Podiatric Office Visit: Chief Complaint: This 51 year old female who presents with chief complaint:neuropathy HPI Patient presents to clinic with complaint of neuropathy if b/l feet Patient was diagnosed with neuropathy in summer She was treated with gabapentin but she noticed that her legs began to swell. Patient states that the swelling was more uncomfortable than the actual neuropathy. Patient states the neuropathy leads to shooting pains, cold sensitivity, burning. She also feels similar issues with her hands. She states that it feels like she has a latex glove on her hand. Currently, she is not doing anything for the pain. Patient was diagnosed with diabetes in fall 2019. 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 metFORMIN ER (GLUCOPHAGE XR) 500 mg 24 hr tablet Take 500 mg by mouth once daily. rosuvastatin (CRESTOR) 10 mg tablet Take 10 mg by mouth once daily. metoprolol tartrate, short acting, (LOPRESSOR) 25 mg tablet Take 0.5 tablets by mouth twice daily. lisinopril-hydrochlorothiazide 20-12.5 mg ORAL per tablet Take 1 tablet by mouth once daily. lisinopril-hydroCHLOROthiazide (PRINZIDE,ZESTORETIC) 10-12.5 mg per tablet Take 1 tablet by mouth once daily. (Patient not taking: Reported on 01/24/2022) naltrexone-bupropion (CONTRAVE) 8-90 mg TbER Take by mouth twice daily. furosemide (LASIX) 20 mg tablet Take 20 mg by mouth once daily. METOPROLOL TARTRATE ORAL Take 25 mg by mouth twice daily. Pt is taking 1/2 tablet at 10 am and 1/2 tablet at 10 pm. (Patient not taking: Reported on 01/24/2022) ibuprofen 600 mg ORAL tablet Take 1 tablet by mouth every 6 hours as needed. FOR PAIN. No current facility-administered medications for this visit. ALLERGIES No Known Allergies PAST SURGICAL HISTORY Procedure Laterality Date ADENOIDECTOMY PRIMARY DELIVERY ONLY 2001 DELIVERY ONLY 2004 , low cervical REMOVAL OF IMPACTED TOOTH - COMPLETELY BONY, WITH UNUSUAL SURGICAL COMPLICATIONS 04/2006 both wisdom teeth removed FAMILY HISTORY Problem Relation Age of Onset Hypertension Father Arthritis Father Arthritis Mother Diabetes Mother mom = Gely Werely Hypertension Mother other (Brain Cancer [Other]) Other cousin Diabetes Maternal Aunt Breast Cancer Mother had lumpectomy/radiation only Diabetes Father Social History Tobacco Use Smoking status: Never Smokeless tobacco: Never Substance Use Topics Alcohol use: Yes Comment: Occasionally Drug use: No REVIEW OF SYSTEMS GENERAL: Negative for Malaise, significant weight loss, fever RESPIRATORY: Negative for cough, wheezing and shortness of breath CARDIOVASCULAR: Negative for chest pain, leg swelling and palpitations GI: Negative for abdominal discomfort, blood in stools or black stools and change in bowel habits : Negative for dysuria, frequency and incontinence MUSCULOSKELETAL: Negative for joint pain or swelling, back pain, and muscle pain. SKIN: Negative for lesions, rash, and itching. HEMATOLOGY/LYMPHOLOGY Negative for prolonged bleeding, bruising easily, and swollen nodes. ENDOCRINE: Negative for cold or heat intolerance, polyuria, polydipsia and goiter. NEURO: negative Physical Exam: Constitutional: Pt is a well developed 51 year old female who is alert, oriented and cooperative Eyes: Following during examination. No redness or drainage. Respiratory: RR normal and nonlabored. Even breathing. No evidence of distress or shortness of breath. Psychology: Patient is engaged during conversation. Normal affect and mood. Does not appear depressed or anxious during encounter. Vascular: Dorsalis pedis and posterior tibial pulses palpable as b/l Capillary Fill time < 5 seconds to digits 1-5 b/l Skin temperature warm to warm proximal to distal b/l Hair growth present to digits Neurological: intact light touch/epicritic sensation Vibratory sensation is decreased b/l decreased protective sensation + neurological deficits Dermatological: (more content not included)... [facility] Progress note 01-24-2022 Note Date & Type Note Facility 01-24-2022 Note HNO ID: [id number] Author: Bette Sparks RN Service: ? Author Type: ? Type: Progress Notes Filed: 01/26/2022 10:37 PM Note Text: AMB ROOMING INTAKE FLOWSHEET DATA Risk Screening Do you have concerns about personal safety or safety in the home?: No Pain Pain Level: 6 (1-10) Pain Location: Other: See Comment (B/L feet) Description: Burning, Shooting, Numbness, Tingling Duration Amount of Time: 1 Duration Units: Years Frequency: Continuous Intervention/Comfort measure: Reposition, Relaxation Patient presents with: Left Foot - New Patient, Diabetic Foot Check Right Foot - New Patient, Diabetic Foot Check Patient referred by PCP. Diagnosed with neuropathy - symptoms since fall. Was prescribed neurontin but discontinued due to side effects (ankle swelling, tired). [facility] Instructions 01-24-2022 Patient Instructions Note Date & Type Note Facility 01-24-2022 Instructions Antwan Montoya - 01/24/2022 4:04 PM EST Diabetes Foot Care Instructions When you have diabetes, proper foot care is very important. Poor foot care may lead to amputation of a foot or leg. As a person with diabetes, you are more vulnerable to foot problems, because diabetes can damage your nerves and reduce blood flow to your feet. Here are some diabetes foot care tips to follow: Wash and Dry Your Feet Daily Use mild soaps Use warm water Pat your skin dry; do not rub. Thoroughly dry your feet. After washing, use lotion on your feet to prevent cracking. Do not put lotion between your toes. Examine Your Feet Each Day Check the tops and bottoms of your feet. Have someone else look at your feet if you cannot see them. Check for dry, cracked skin. Look for blisters, cuts, scratches, or other sores. Check for redness, increased warmth, or tenderness when touching any area of your feet. Check for ingrown toenails, corns, and calluses. If you get a blister or sore from your shoes, do not pop it. Apply a bandage and wear a different pair of shoes. Take Care of Your Toenails Cut toenails after bathing, when they are soft. Cut toenails straight across and smooth with a nail file. Avoid cutting into the corners of toes. Do not cut cuticles. If you have neuropathy (or decreased sensation in your feet) a flattening press operator should always cut your toenails. Be Careful When Exercising Walk and exercise in comfortable shoes. Do not exercise when you have open sores on your feet. Protect Your Feet With Shoes and Socks Never go barefoot. Always protect your feet by wearing shoes or hard-soled slippers or footwear. Avoid shoes with high heels and pointed toes. Avoid shoes that expose your toes or heels (such as open-toed shoes or sandals). These types of shoes increase your risk for injury and potential infections. Try on new footwear with the type of socks you usually wear. Do not wear new shoes for more than an hour at a time. Change your socks daily. Look and feel inside your shoes before putting them on to make sure there are no foreign objects or rough areas. Avoid tight socks. Wear natural-fiber socks (cotton, wool, or a cotton-wool blend). Wear special shoes if your health care provider recommends them. Wear shoes/boots that will protect your feet from various weather conditions (cold, moisture, etc.). Make sure your shoes fit properly. If you have neuropathy (nerve damage), you may not notice that your shoes are too tight. Perform the footwear test described below. Footwear Test Use this simple test to see if your shoes fit correctly: Stand on a piece of paper. (Make sure you are standing and not sitting, because your foot changes shape when you stand.) Trace the outline of your foot. Trace the outline of your shoe. Compare the tracings: Is the shoe too narrow? Is your foot crammed into the shoe? The shoe should be at least 1/2 inch longer than your longest toe and as wide as your foot. Proper Shoe Choices The following types of shoes are best for people with diabetes Closed toes and heels Leather uppers without a seam inside At least 1/2 inch extra space at the end of your longest toe Inside of shoe should be soft with no rough areas Outer sole should be made of stiff material Shoes should be at least as wide as your feet Tips for Foot Care in Diabetes Don't wait to treat a minor foot problem if you have diabetes. Follow your health care provider's guidelines and first aid guidelines. Report foot injuries and infections to your health care provider immediately. Check water temperature with your elbow, not your foot. Do not use a heating pad on your feet. Do not cross your legs. Do not self-treat your corns, calluses, or other foot problems. Go to your health care provider or flattening press operator to treat these conditions. documented in this encounter [facility] History of Present illness Narrative 01-24-2022 Antwan Montoya - 01/24/2022 3:52 PM ESTTamatteo Sparks RN - 01/24/2022 3:21 PM EST Note Date & Type Note Facility 01-24-2022 History of Presen t illness Narrative Images from the original note were not included. Initial Podiatric Office Visit: Chief Complaint: This 51 year old female who presents with chief complaint:neuropathy HPI Patient presents to clinic with complaint of neuropathy if b/l feet Patient was diagnosed with neuropathy in summer She was treated with gabapentin but she noticed that her legs began to swell. Patient states that the swelling was more uncomfortable than the actual neuropathy. Patient states the neuropathy leads to shooting pains, cold sensitivity, burning. She also feels similar issues with her hands. She states that it feels like she has a latex glove on her hand. Currently, she is not doing anything for the pain. Patient was diagnosed with diabetes in fall 2019. 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 metFORMIN ER (GLUCOPHAGE XR) 500 mg 24 hr tablet Take 500 mg by mouth once daily. rosuvastatin (CRESTOR) 10 mg tablet Take 10 mg by mouth once daily. metoprolol tartrate, short acting, (LOPRESSOR) 25 mg tablet Take 0.5 tablets by mouth twice daily. lisinopril-hydrochlorothiazide 20-12.5 mg ORAL per tablet Take 1 tablet by mouth once daily. lisinopril-hydroCHLOROthiazide (PRINZIDE,ZESTORETIC) 10-12.5 mg per tablet Take 1 tablet by mouth once daily. (Patient not taking: Reported on 01/24/2022) naltrexone-bupropion (CONTRAVE) 8-90 mg TbER Take by mouth twice daily. furosemide (LASIX) 20 mg tablet Take 20 mg by mouth once daily. METOPROLOL TARTRATE ORAL Take 25 mg by mouth twice daily. Pt is taking 1/2 tablet at 10 am and 1/2 tablet at 10 pm. (Patient not taking: Reported on 01/24/2022) ibuprofen 600 mg ORAL tablet Take 1 tablet by mouth every 6 hours as needed. FOR PAIN. No current facility-administered medications for this visit. ALLERGIES No Known Allergies PAST SURGICAL HISTORY Procedure Laterality Date ADENOIDECTOMY PRIMARY <AGE 13 1977 DELIVERY ONLY 2001 DELIVERY ONLY 2004 , low cervical REMOVAL OF IMPACTED TOOTH - COMPLETELY BONY, WITH UNUSUAL SURGICAL COMPLICATIONS 04/2006 both wisdom teeth removed FAMILY HISTORY Problem Relation Age of Onset Hypertension Father Arthritis Father Arthritis Mother Diabetes Mother mom = Gely Werely Hypertension Mother other (Brain Cancer [Other]) Other cousin Diabetes Maternal Aunt Breast Cancer Mother had lumpectomy/radiation only Diabetes Father Social History Tobacco Use Smoking status: Never Smokeless tobacco: Never Substance Use Topics Alcohol use: Yes Comment: Occasionally Drug use: No REVIEW OF SYSTEMS GENERAL: Negative for Malaise, significant weight loss, fever RESPIRATORY: Negative for cough, wheezing and shortness of breath CARDIOVASCULAR: Negative for chest pain, leg swelling and palpitations GI: Negative for abdominal discomfort, blood in stools or black stools and change in bowel habits : Negative for dysuria, frequency and incontinence MUSCULOSKELETAL: Negative for joint pain or swelling, back pain, and muscle pain. SKIN: Negative for lesions, rash, and itching. HEMATOLOGY/LYMPHOLOGY Negative for prolonged bleeding, bruising easily, and swollen nodes. ENDOCRINE: Negative for cold or heat intolerance, polyuria, polydipsia and goiter. NEURO: negative Physical Exam: Constitutional: Pt is a well developed 51 year old female who is alert, oriented and cooperative Eyes: Following during examination. No redness or drainage. Respiratory: RR normal and nonlabored. Even breathing. No evidence of distress or shortness of breath. Psychology: Patient is engaged during conversation. Normal affect and mood. Does not appear depressed or anxious during encounter. Vascular: Dorsalis pedis and posterior tibial pulses palpable as b/l Capillary Fill time < 5 seconds to digits 1-5 b/l Skin temperature warm to warm proximal to distal b/l Hair growth present to digits Neurological: intact light touch/epicritic sensation Vibratory sensation is decreased b/l decreased protective sensation + neurological deficits Dermatological: Nails 1-5 b/l appear normal. Webspaces clean and dry 1-4 b/l. Skin appears scaled. No open lesions present. No callosities present. Musculoskeletal/Orthopaedic: Patient has no pain to palpation of b/l feet Foot type is neutral structurally AJ ROM is full with knee extended and flexed 1st MPJ is full when loaded and no pain or crepitus are noted with ROM. MTJ, STJ are full and free of pain and crepitus. +5/5 muscle strength dorsiflexion, plantarflexion, inversion, eversion b/l Radiographs: n/a ASSESSMENT: (E11.49) Other diabetic neurological complication associated with type 2 diabetes mellitus (HCC) (primary encounter diagnosis) (B35.3) Tinea pedis of both feet PLAN: 1. History and physical examination performed. 2. Discussed neuropathy of b/l feet. She has tried neurontin butb this only made her pain worse . Discussed trying topical cream. Will call in compounding cream to [facility] 3. Will call in lotrisone to tinea pedis 4. Diabetic foot exam performed. Antwan Montoya DPM Podiatry [address] [facility] [address] Dept: [phone] Dept AMB ROOMING INTAKE FLOWSHEET DATA Risk Screening Do you have concerns about personal safety or safety in the home?: No Pain Pain Level: 6 (1-6/10) Pain Location: Other: See Comment (B/L feet) Description: Burning, Shooting, Numbness, Tingling Duration Amount of Time: 1 Duration Units: Years Frequency: Continuous Intervention/Comfort measure: Reposition, Relaxation Patient presents with: Left Foot - New Patient, Diabetic Foot Check Right Foot - New Patient, Diabetic Foot Check Patient referred by PCP. Diagnosed with neuropathy - symptoms since fall. Was prescribed neurontin but discontinued due to side effects (ankle swelling, tired). documented in this encounter [facility] History of Past illness Narrative 07-13-2009 Note Date & Type Note Facility documented as of this encounter (statuses as of 01/27/2022) [facility] Evaluation note Note Date & Type Note Facility documented in this encounter [facility] History of Past Illness Problem Noted Date Resolved Date Routine general medical exam ination at a health care facility 07/13/2009 01/08/2012 Overview: 07/13/2009, from Saurabh Severino 09/25/2010, yearly Routine gynecological examination 07/13/2009 01/08/2012 Overview: [facility] Nanette Plantar fascial fibromatosis 11/10/200604/2009 OVERWIEGHT 07/08/2006 10/19/2007 Advance Directives No Advanced Directives Records FoundDocuments on File Type Date Recorded Patient Differential Specialist Expl anation Advance Directive(s) Summary Purpose Family History No Family History Records Found Additional Source Comments Source Comments (unrecognize d section and content) In the event this informatio n is protected by the Federal Confidentiality of Alcohol and Drug Abuse Patient Records regulations: The Federal rules restrict any use of the information to criminally investigate or prosecute any alcohol or drug abuse patient.[facility] event this information is protected by the Federal Confidentiality of Alcohol and Drug Abuse Patient Records regulations: The Federal rules restrict any use of the information to criminally investigate or prosecute any alcohol or drug abuse patient.[facility] Reason for Visit (unrecogniz ed section and content) Care Teams (unrecognized sec tion and content) INFORMATION SOURCE (unrecogn ized section and content) FOR RECORDS PERTAINING TO PATIENTS WHO ARE OR HAVE BEEN ENROLLED IN A CHEMICAL DEPENDENCY/SUBSTANCEABUSE PROGRAM, SOME INFORMATION MAY BE OMITTED. This clinical summary was aggregated from multiple sources. Caution should be exercised in using it in the provision of clinical care. This summary normalizes information from multiple sources, and as a consequence, information in this document may materially change the coding, format and clinical context of patient data. In addition, data may be omitted in some cases. CLINICAL DECISIONS SHOULD BE BASED ON THE PRIMARY CLINICAL RECORDS. [employer] [facility]. provides no warranty or guarantee of the accuracy or completeness of information in this document.
== END | disposition home or self-care (01) ==
PROVIDERS: PCP Family Medicine; Referring Provider Physician Assistant; Visit Provider Physician Assistant
DX: R52 Pain, unspecified (principal)
CPT/HCPCS: 73630

== ENCOUNTER → 2023-06-18 | Outpatient (CLI) | payer BC, SELFPAY | END | disposition home or self-care (01) | LOC: LAB.FUTURE 08:15 | PROVIDERS: PCP Family Medicine; Visit Provider Family Medicine | DX: E11.9 Type 2 diabetes mellitus without complications (principal) ==

== ENCOUNTER → 2023-12-26 | Outpatient (CLI) | payer BC, SELFPAY ==
[2023-12-26 18:12] LABS: ALB/GLOB Ratio 0.9 RATIO (0.9-2.4); AST(SGOT) 13 U/L (15-37); Alanine Aminotransfer ALT/SGPT 27 U/L (13-56); Albumin, Serum 3.3 g/dL (3.2-5.0); Alkaline Phosphatase 89 U/L (45-117); Anion Gap 7 (5-15); BUN 11 mg/dL (7-18); BUN/Creat Ratio 16.1 RATIO (10-20); Calcium,Total 9.3 mg/dL (8.5-10.1); Chloride 103 mmol/L (98-107); Cholesterol 162 mg/dL (200); Creatinine, Serum 0.68 mg/dL (0.55-1.02); EST Glomerular Filtration Rate 96 mL/min (>60); Est Glom Filt Rate - Afr Amer 116 mL/min (>60); Globulin 3.8 g/dL (2.2-4.2); Glucose 189 mg/dL (74-106); High Density Lipoprotein 48 mg/dL; Potassium 3.8 mmol/L (3.5-5.1); Protein, Total 7.1 g/dL (6.4-8.2); Sodium Level 133 mmol/L (136-145); Triglycerides 274 mg/dL; Very Low Density Lipoprotein 55 mg/dL (5-40)
[2023-12-26 18:20] LABS: Hemoglobin A1c 6.4 % (3.8-5.6)
== END | disposition home or self-care (01) ==
LOC: MFPLAB 14:01
PROVIDERS: PCP Family Medicine; Visit Provider Family Medicine
DX: E11.9 Type 2 diabetes mellitus without complications (principal)
CPT/HCPCS: 36415; 80053; 80061; 83036

== ENCOUNTER → 2024-08-18 | Outpatient (CLI) | payer BC, SELFPAY ==
[2024-08-18 15:51] LABS: AST(SGOT) 20 U/L (<=31); Alanine Aminotransfer ALT/SGPT 24 U/L (<=34); Albumin, Serum 3.8 g/dL (3.5-5.0); Alkaline Phosphatase 87 U/L (35-104); Anion Gap 11 (5-15); BUN 9 mg/dL (4-19); BUN/Creat Ratio 16.3 RATIO (10-20); Calcium,Total 9.4 mg/dL (7.6-11.0); Carbon Dioxide 26.0 mmol/L (21.0-32.0); Chloride 102 mmol/L (98-108); Cholesterol 128 mg/dL (<=200); Globulin 2.8 g/dL (2.2-4.2); Glucose 189 mg/dL (70-99); Low Density Lipoprotein Calc. 34 mg/dL; Potassium 4.1 mmol/L (3.3-5.1); Triglycerides 247 mg/dL; Very Low Density Lipoprotein 49 mg/dL (5-40); cholesterol:hdl ratio screen 2.84
== END | disposition home or self-care (01) ==
LOC: MFPLAB 12:22
PROVIDERS: PCP Family Medicine; Referring Provider Family Medicine; Visit Provider Family Medicine
DX: E11.9 Type 2 diabetes mellitus without complications (principal)
CPT/HCPCS: 36415; 80053; 80061